=== PATIENT | male | born 2005 | race Caucasian/White ===

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

== ENCOUNTER 2023-01-09 14:30 | Emergency (ER) | payer BC, MEDICAID, SELFPAY ==
[2023-01-09 14:41] VITALS: BP 158/63; PULSE 83; TEMP 37.1; O2SAT 100; BMI 19.3
--- NOTE | 2023-01-09 15:06 | W.ED.EXTPRO ---
HPI - Extremity Problem General: Chief complaint: Extremity Problem,Nontraumatic Stated complaint: right index finger infected, sent from Time Seen by Provider: 01/09/23 14:34 Source: patient Mode of arrival: ambulatory Limitations: no limitations History of Present Illness: Patient is a 17-year-old male who presents to ED today with concerns of a right fingertip infection. Patient was seen at urgent care approximately 2 days ago and diagnosed with a right index finger paronychia and placed on Bactrim with instructions for warm soaks. He states he was told if finger worsens in any way then he needs to come to the emergency department for IV antibiotics. Patient states he has had a total of 3-4 doses of the Bactrim thus far. MD Complaint: extremity pain Onset (ago): day(s) Pain Consistency: constant Location: right and upper extremity Radiation: none Relieving factors: nothing Exacerbating factors: palpation Associated symptoms: Reports no associated symptoms; Deny fever(s) Review of Systems Const: Denies: fever(s), chills, body aches, fatigue or malaise Musc: Reports: extremity pain (R distal finger pain); Denies: extremity swelling Neuro: Denies: numbness in extremities or sensory changes Physical Exam Const: COMMON NORMALS: no acute distress, average body habitus, no limitations, healthy appearing, alert and well nourished Extremity: COMMON NORMALS: full ROM and capillary refill normal GENERAL: Yes normal exam except as noted RIGHT UPPER EXTREMITY: Yes hand & digits OTHER: pt has a fairly normal exam of his R distal index finger; he actually starts by showing me both index fingers side by side and I honestly had a hard time differentiating which finger he was concerned with as they looked identical; he certainly does not have any type of drainable abscess formation whether that's from a paronychia or felon; nothing to suggest a herpetic lashonda; palmar pad is soft, non-edematous, non-erythematous Neuro: SENSORIUM/ORIENTATION: Yes alert Course Vital Signs: Vital signs: Vital Signs Temperature 98.8 F 01/09/23 14:41 Pulse Rate 83 01/09/23 14:41 Blood Pressure 158/63 01/09/23 14:41 Pulse Oximetry 100 01/09/23 14:41 Oxygen Delivery Me thod Room Air 01/09/23 14:41 MDM - Extremity (Nontraumatic) Medical Decision Making He can continue antibiotics and warm soaks. There is nothing drainable or anything further I need to intervene with at this time. Return to ED precautions given. No radiology studies performed this visit Discharge Plan Discharge Patient Disposition: Home Clinical Impression: Finger pain, right Condition: Stable Prescriptions: No Action mupirocin 2 % ointment 1 applic topical TID 10 Days Qty: 15 0RF sulfamethoxazole-trimethoprim [Bactrim DS] 800-160 mg tablet 1 tab PO BID 7 Days Qty: 14 0RF Discharge Orders: Discharge ED (Routine); Ordered 01/09/23 Ordered By: Wilma Delatorre Referrals: Lina Simons MD [Primary Care Provider] - Activity Restrictions/Additional Instructions: Continue antibiotics and warm soaks as directed. You need to return to the ED or your primary care provider for any worsening redness, swelling, severe pain, or any other concerns you may have. Coding Level of Care Code ED Special Education Paraprofessional for Monique Astorga
== END 2023-01-09 15:25 | disposition home or self-care (01) ==
PROVIDERS: Emergency Provider Physician Assistant; PCP Family Medicine
DX: M79.644 Pain in right finger(s) (principal)
CPT/HCPCS: 99283

== ENCOUNTER 2025-01-11 15:48 | Outpatient (CLI) | payer BC, SELFPAY ==
--- NOTE | 2025-01-11 16:01 | US_ITS ---
WS: [id number] TESTICULAR ULTRASOUND HISTORY: LEFT TESTICLE PAIN COMPARISON: 12/12/2022 TECHNIQUE: Real-time and color Doppler imaging utilized to perform a testicular ultrasound. Right testicle: 3.9 cm x 2.5 cm x 1.8 cm. Normal size and echogenicity. No mass or torsion. Normal color Doppler is present throughout. Systolic and diastolic velocities are both present. No significant hydrocele. Right epididymis: Not imaged. Left testicle: 4.0 cm x 2.9 cm x 2.1 cm. Normal size and echogenicity. No mass or torsion. Normal color Doppler is present throughout. Systolic and diastolic velocities are both present. No significant hydrocele. Left epididymis: Not imaged. LEFT pampiniform plexus is not imaged. US/US scrotum [id number] IMPRESSION: 1. No testicular mass or torsion. 2. Neither epididymis or pampiniform plexus is well evaluated on this exam. No color Doppler was obtained. Recommend repeat ultrasound evaluation at no addit ional charge. 3. No hydrocele.
== END 2025-01-11 15:49 | disposition home or self-care (01) ==
LOC: RAD 15:49
PROVIDERS: PCP Family Medicine; Visit Provider Nurse Practitioner Family
DX: N50.812 Left testicular pain (principal)
CPT/HCPCS: 76870

== ENCOUNTER 2025-01-12 15:43 | Outpatient (CLI) | payer BC, SELFPAY ==
--- NOTE | 2025-01-12 15:53 | US_ITS ---
WS: [id number] TESTICULAR ULTRASOUND HISTORY: SCROTAL PAIN COMPARISON: None available. TECHNIQUE: Real-time and color Doppler imaging utilized to perform a testicular ultrasound. Right testicle: 4.1 cm x 2.4 cm x 2.0 cm. Normal size and echogenicity. No mass or torsion. Normal color Doppler is present throughout. Systolic and diastolic velocities are both present. No significant hydrocele. Right epididymis: Normal epididymis with no increased vascularity. Left testicle: 4.1 cm x 2.3 cm x 1.8 cm. Normal size and echogenicity. No mass or torsion. Normal color Doppler is present throughout. Systolic and diastolic velocities are both present. No significant hydrocele. Left epididymis: Normal epididymis with no increased vascularity. Prominent LEFT pampiniform plexus. US/US scrotum [id number] IMPRESSION: 1. No testicular mass or torsion. 2. No hydrocele. 3. No epididymitis. 4. Prominent pampiniform plexus. Mildly engorged vessels with Valsalva suggest ing mild varicocele.
== END 2025-01-12 15:44 | disposition home or self-care (01) ==
PROVIDERS: PCP Family Medicine; Visit Provider Nurse Practitioner Family
DX: Z53.9 Procedure and treatment not carried out, unspecified reason (principal)
CPT/HCPCS: 76870